=== PATIENT | male | born 1960 | race Caucasian/White ===

== ENCOUNTER 2023-05-23 13:03 | Emergency (ER) | payer OTHER ==
[~2023-05-23] VITALS: Ht 180.3 cm; Wt 77.1 kg
[2023-05-23] MEDS ORDERED: WELLBUTRIN (13:28)
[2023-05-23] MEDS ORDERED: KETAMINE (13:28)
[2023-05-23] MEDS ORDERED: SERT50TA14 (13:28)
[2023-05-23 15:25] VITALS: BP 129/81; O2SAT 98
== END 2023-05-23 15:25 | disposition home or self-care (01) ==
LOC: ER 13:26
DX: S60.222A Contusion of left hand, initial encounter (principal); S80.212A Abrasion, left knee, initial encounter; S09.90XA Unspecified injury of head, initial encounter; Z88.0 Allergy status to penicillin; Z79.899 Other long term (current) drug therapy; V89.2XXA Person injured in unspecified motor-vehicle accident, traffic, initial encounter; Y93.89 Activity, other specified; Y92.89 Other specified places as the place of occurrence of the external cause; Y99.8 Other external cause status
CPT/HCPCS: 70450; 73130; A4663